=== PATIENT | female | born 1970 | race Caucasian/White ===

== ENCOUNTER 2017-10-17 18:22 | Emergency (ER) | payer OTHER ==
[~2017-10-17] VITALS: Ht 154.9 cm; Wt 100.7 kg
[~2017-10-17 18:22] MED LIST: ATIVAN0.5 MG PO; BUSPAR30 MG PO; CYMBALTA30 MG PO; CYMBALTA60 MG PO; FOCALIN XR30 MG PO; HAIR SKIN NAIL1 EACH PO; LIORESAL10 MG PO; NORVASC10 MG PO; PRAVACHOL80 MG PO; PRILOSEC20 MG PO; PROVENTIL HFA6.7 GM IH; SINGULAIR10 MG PO; TENORETIC 501 TABLET PO; TRI-SPRINTEC1 EACH PO; ZOCOR40 MG PO; ZOLOFT50 MG PO
[2017-10-17 20:28] LABS: APPEARANCE SL.HAZY ((CLEAR)); BILIRUBIN NEGATIVE; BLOOD NEGATIVE; COLOR YELLOW ((YELLOW)); GLUCOSE (STRIP) NEGATIVE; KETONES 5; LEUKOCYTES MODERATE; NITRITE NEGATIVE; PROTEIN (STRIP) NEGATIVE; UROBILINOGEN 0.2 MG/DL (0.2-1.0)
[2017-10-17 20:48] LABS: BACTERIA RARE /HPF; EPITHELIAL CELLS 2+ /HPF; MUCUS TRACE /LPF; RED BLOOD CELLS 0-5 /HPF (0-5); UCUL ADDED? YES
[2017-10-17] MEDS ORDERED: ATIVAN1 MG PO (21:16)
[2017-10-17 21:43] VITALS: BP 165/100
== END 2017-10-17 21:51 | disposition home or self-care (01) ==
LOC: EME 18:22
PROVIDERS: Physician Assistant
DX: F41.0 Panic disorder [episodic paroxysmal anxiety] (principal); R07.9 Chest pain, unspecified; R06.02 Shortness of breath; R20.0 Anesthesia of skin; J45.909 Unspecified asthma, uncomplicated; I10 Essential (primary) hypertension; Z79.3 Long term (current) use of hormonal contraceptives; Z87.891 Personal history of nicotine dependence
CPT/HCPCS: 81003; 87086; 99281; 99283